=== PATIENT | female | born 1975 | race Caucasian/White ===

== ENCOUNTER → 2016-09-03 | Outpatient (CLI) | payer BC | LOC: MC.RAD 11:33 | DX: Z12.31 Encounter for screening mammogram for malignant neoplasm of breast (principal) ==

== ENCOUNTER 2017-10-17 15:15 | Inpatient (IN) | payer BC ==
[~2017-10-17] VITALS: Ht 157.5 cm; Wt 85.0 kg
[2017-10-17] VITALS (11 sets, daily range): BP systolic 100–139; BP diastolic 51–65; PULSE 80–107; TEMP 97.7–98.1
[2017-10-17] MEDS ORDERED: ZOLOFT 100MG100 MG PO (16:17)
[2017-10-17 16:37] LABS: GRAN # 4.1 (1.4-6.5); GRAN % 68.8 % (42.2-75.2); HEMOGLOBIN 11.7 g/dl (12.5-16.0); LYMPH # 1.4 (1.2-3.4); LYMPH % 23.7 % (20.0-51.0); MEAN CELL VOLUME 84 fl (80.0-100.0); MEAN CORPUSCULAR HEMOGLOBIN 29 pg (27.0-31.0); MEAN CORPUSCULAR HGB CONC 34 g/dl (33.0-37.0); MEAN PLATELET VOLUME 9.5 fl (7.4-10.4); MONO # 0.4 (0.1-0.6); PLATELET COUNT 133 K/mm3 (130-400); RED BLOOD COUNT 4.04 M/mm3 (4.10-5.30); REDCELL DISTRIBUTION WIDTH-CV 14.5 % (11.5-14.5)
[2017-10-17 16:44] LABS: HEMATOCRIT 34.1 % (37.0-47.0)
[2017-10-17 16:45] LABS: ALBUMIN 3.6 gm/dL (3.5-5.0); BILIRUBIN,TOTAL 0.4 mg/dL (0.0-1.0); CALCIUM 8.9 mg/dL (8.4-10.2); CREATININE, serum 0.45 mg/dL (0.52-1.25); POTASSIUM 3.4 mmol/L (3.4-5.0); TOTAL PROTEIN 7.1 gm/dL (6.4-8.2)
[2017-10-17 17:15] LABS: THYROID STIMULATING HORMONE 2.49 uIU/mL (0.465-4.680)
[2017-10-18] VITALS (28 sets, daily range): BP systolic 82–136; BP diastolic 49–66; PULSE 81–106; TEMP 97.8–99.1
[2017-10-18 07:41] LABS: HEMATOCRIT 26.2 % (37.0-47.0); HEMOGLOBIN 9.1 g/dl (12.5-16.0)
[2017-10-18] MEDS ORDERED: PERCOCET 325 MG1 TA2 PO (09:51)
== END 2017-10-18 14:00 | disposition home or self-care (01) | DRG 770 ==
LOC: LDR
PROVIDERS: Obstetrics & Gynecology
PROC: 10D17Z9 Manual Extraction of Products of Conception, Retained, Via Natural or Artificial Opening (ICD-10-PCS; principal; 2017-10-17)
PROC: 3E0P7VZ Introduction of Hormone into Female Reproductive, Via Natural or Artificial Opening (ICD-10-PCS; 2017-10-17)
DX: O02.1 Missed abortion (principal); O09.522 Supervision of elderly multigravida, second trimester; Z3A.15 15 weeks gestation of pregnancy; J45.909 Unspecified asthma, uncomplicated
CPT/HCPCS: J1580; J2210; J2405; J2704; J3010; J7120

== ENCOUNTER 2020-03-04 08:22 | Outpatient (RCR) | payer OTHER ==
[~2020-03-04 08:22] MED LIST: PERCOCET 325 MG1 TA2 PO; ZOLOFT 100MG100 MG PO
== END 2020-04-12 13:13 | disposition home or self-care (01) ==
LOC: WSOH 08:22
DX: S10.0XXA Contusion of throat, initial encounter (principal); F32.9 Major depressive disorder, single episode, unspecified; Y99.0 Civilian activity done for income or pay

== ENCOUNTER → 2020-09-16 | Outpatient (CLI) | payer BC | LOC: COL.RAD 06:58 | DX: N83.8 Other noninflammatory disorders of ovary, fallopian tube and broad ligament (principal) | CPT/HCPCS: A9585 ==